=== PATIENT | male | born 1980 | race Caucasian/White ===

== ENCOUNTER 2017-09-09 11:50 | Inpatient (IN) | payer OTHER ==
[~2017-09-09] VITALS: Ht 172.7 cm; Wt 92.0 kg
[~2017-09-09 11:50] MED LIST: Z.0.NO CURRENT MEDS
[2017-09-09 11:58] VITALS: BP 134/72; PULSE 72; RESP 18; TEMP 99; O2SAT 100
[2017-09-09] MEDS ORDERED: SODIUM CHLOR 0.9% 1000 ML INJ 1,000 ML IV SCH (11:59)
[2017-09-09] MEDS ORDERED: TETANUS/DIPHTHERIA TOXOID ADULT 0.5 ML VIAL IM ONE (12:00)
[2017-09-09] MEDS ORDERED: ceFAZolin 2 GM PREMIX 50 ML IV ONE (12:00)
[2017-09-09] MEDS ORDERED: SODIUM CHLORIDE 0.9% FLUSH 10 ML FLUSH IV FLUSH PRN ×2 (12:00→14:30)
[2017-09-09] MEDS ORDERED: ONDANSETRON HCL 4 MG/2 ML VIAL IVP ONE (12:00)
[2017-09-09 12:06] VITALS: BP 134/72; PULSE 72; RESP 18; TEMP 99; TEMP 99.3; O2SAT 100
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
[2017-09-09 12:33] LABS: AUTOMATED NEUTROPHIL # 4.2 TH/MM3 (1.8-7.7); BASOPHIL # 0.1 TH/MM3 (0-0.2); BASOPHIL % 0.7 % (0.0-2.0); EOSINOPHIL # 0.2 TH/MM3 (0-0.4); EOSINOPHIL % 2.5 % (0.0-4.0); HEMATOCRIT 42.2 % (39.0-51.0); HEMO FLAGS DIFF FINAL; LYMPHOCYTE # 3.6 TH/MM3 (1.0-4.8); MEAN CELL VOLUME 86.7 FL (80.0-100.0); MEAN CORPUSCULAR HGB CONC 33.5 % (32.0-36.0); MONO % 7.6 % (0.0-8.0); NEUT % 48.2 % (16.0-70.0); PLATELET COUNT 239 TH/MM3 (150-450); RED BLOOD COUNT 4.87 MIL/MM3 (4.50-5.90); RED CELL DISTRIBUTION WIDTH 13.2 % (11.6-17.2); WHITE BLOOD COUNT 8.8 TH/MM3 (4.0-11.0)
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
[2017-09-09 12:44] LABS: ANION GAP 8 MEQ/L (5-15); AST (GOT) 16 U/L (15-37); BICARBONATE 23.4 MEQ/L (21.0-32.0); BLOOD UREA NITROGEN 13 MG/DL (7-18); CHLORIDE 108 MEQ/L (98-107); GLOMERULAR FILTRATION RATE 69 ML/MIN (>89); POTASSIUM 3.5 MEQ/L (3.5-5.1); SODIUM (NA) 139 MEQ/L (136-145)
[2017-09-09 12:45] LABS: ALT (GPT) 26 U/L (12-78)
[2017-09-09 12:47] LABS: ALKALINE PHOSPHATASE 75 U/L (45-117); TOTAL BILIRUBIN ADULT 1.3 MG/DL (0.2-1.0)
[2017-09-09] MEDS ORDERED: MORPHINE SULFATE 4 MG/ML INJ IV PUSH ONE (13:00)
[2017-09-09 14:14] VITALS: BP 134/72; PULSE 86; RESP 18; O2SAT 98
[2017-09-09] MEDS ORDERED: NALOXONE HCL 0.4 MG/ML AMP IV PUSH PRN (14:30)
[2017-09-09] MEDS ORDERED: Post-op Orders (for Pharmacy) MISC XX ONE (14:30)
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
[2017-09-09] MEDS ORDERED: ACETAMINOPHEN/HYDROcodone 325 MG/5 MG TAB PO PRN (15:00)
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
[2017-09-09] MEDS: SODIUM CHLOR 0.9% 1000 ML INJ 1,000 ML IV SCH ×2 (15:29→16:46)
[2017-09-09] MEDS: MORPHINE SULFATE 4 MG/ML INJ IV PUSH PRN ×2 (15:30→23:31)
[2017-09-09 15:31] VITALS: BP 152/78
[2017-09-09 16:00] VITALS: BP 124/77; PULSE 70; RESP 17; TEMP 97; O2SAT 98
[2017-09-09] MEDS ORDERED: ONDANSETRON HCL 4 MG/2 ML VIAL IV PUSH PRN (18:00)
[2017-09-09] MEDS ORDERED: LIDOCAINE HCL 1% 20 ML VIAL INFIL ONE (18:15)
[2017-09-09] MEDS ORDERED: HYDROmorphone HCL PF 1 MG/ML VIAL IV PUSH ONE (18:30)
[2017-09-09] MEDS ORDERED: LIDOCAINE HCL 1% 50 ML VIAL ONE (18:50)
[2017-09-09 20:00] VITALS: BP 113/76; PULSE 59; RESP 20; TEMP 99.7; O2SAT 98
[2017-09-09] MEDS: SODIUM CHLORIDE 0.9% FLUSH 10 ML FLUSH IV FLUSH SCH (20:58)
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
[2017-09-10] VITALS: BP 120/69; PULSE 58; RESP 20; TEMP 95.6; O2SAT 97
[2017-09-10 04:00] VITALS: BP 104/55; PULSE 75; RESP 20; TEMP 97.4; O2SAT 96
[2017-09-10] MEDS ORDERED: LACTULOSE SYRUP 20 GM/30 ML CUP PO PRN (07:30)
[2017-09-10] MEDS ORDERED: oxyCODONE/ACETAMINOPHEN 10 MG/325 MG TAB PO PRN (07:30)
[2017-09-10] MEDS: SODIUM CHLORIDE 0.9% FLUSH 10 ML FLUSH IV FLUSH SCH (07:42)
[2017-09-10 08:00] VITALS: BP 109/71; PULSE 60; RESP 18; TEMP 97.6; O2SAT 97
[2017-09-10] MEDS ORDERED: DOCUSATE SODIUM 50 MG/SENNA 8.6 MG TAB PO SCH (09:00)
[2017-09-10] MEDS ORDERED: HYDR-3516 PO (10:49)
[2017-09-10] MEDS ORDERED: SENN1TAB PO (10:49)
[2017-09-10 12:00] VITALS: BP 120/71; PULSE 71; RESP 16; TEMP 99.7; O2SAT 93
[2017-09-10] MEDS ORDERED: CRUTMIS25 (12:30)
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
[2017-09-10 16:00] VITALS: BP 104/57; PULSE 66; RESP 16; TEMP 98.8; O2SAT 96
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
== END 2017-09-10 19:15 | disposition home or self-care (01) | DRG 914 ==
LOC: NEPC 11:50 → NEDA 13:19 → N07A 15:40
PROVIDERS: ADMIT Surgery; ATTEND Surgery
PROC: 0JCQ0ZZ Extirpation of Matter from Right Foot Subcutaneous Tissue and Fascia, Open Approach (ICD-10-PCS; principal; 2017-09-09)
DX: S81.841A Puncture wound with foreign body, right lower leg, initial encounter (principal); W34.00XA Accidental discharge from unspecified firearms or gun, initial encounter
CPT/HCPCS: 73590; 73610; 80053; 85025; 90471; 90714; 94150; 96374; 96375; J0690; J1170; J2270; J2405; J7030; L3260